=== PATIENT | female | born 1990 | race Hispanic/Latino ===

== ENCOUNTER 2022-03-31 19:36 | Emergency (ER) | payer MEDICAID, SELFPAY ==
[2022-03-31 19:42] VITALS: BP 127/67; PULSE 70; RESP 14; TEMP 36.8; O2SAT 100
--- NOTE | 2022-03-31 20:17 | ED.PREGNANCY ---
HPI - General Chief complaint: Vaginal Bleeding Stated complaint: 6 weeks , vag bleeding Time Seen by Provider: 03/31/22 19:59 History of Present Illness HPI Narrative: This is a 31-year-old female at 6wks 0d (LMP Feb 17, 2022), undergoing intrauterine insemination, who presents emergency department complaining of vaginal spotting (described as a small amount of brownish discharge) and cramps. She noted the spotting today and has had cramps beginning this morning associated with morning sickness. She denies other abdominal pain, fevers or chills. Related Data Allergies Allergy/AdvReac Type Severity Reaction Status Date / Time No Known Allergies Allergy Verified 03/31/22 22:39 Review of Systems Review of Systems: CONSTITUTIONAL: Denies fever, chills, or sweats. EYES: Denies visual changes, redness, or discharge. ENT: Denies rhinorrhea, congestion, sore throat, or otalgia. CARDIOVASCULAR: Denies chest pain, palpitations, or edema. RESPIRATORY: Denies cough or dyspnea. GASTROINTESTINAL: Denies abdominal pain, nausea, vomiting, or diarrhea. GENITOURINARY: Small mount of vaginal spotting, cramping denies dysuria or hematuria. SKIN: Denies rash or itching. MUSCULOSKELETAL: Denies back pain, joint pain, or myalgia. NEUROLOGIC: Denies headache, numbness, dizziness, or weakness. PSYCHIATRIC: Denies anxiety or depression. [facility] Social History Social History (Updated 03/31/22 @ 20:21 by Ryland Johnson MD) Smoking status: Never smoker Alcohol intake: current Substance use: never Exam Narrative: GENERAL: Well-appearing, well-nourished, and in no acute distress. HEAD: Normocephalic, atraumatic. EYES: PERRLA and EOMI. CHEST: Clear to auscultation. No respiratory distress. No wheezes rales or rhonchi HEART: Regular rate and rhythm. No murmur heard. Normal peripheral pulses. ABDOMEN: Soft, nontender, nondistended, normal active bowel sounds. No CVA tenderness to palpation (chaperoned by female RODY Perez): Normal external female genitalia, no active bleeding noted, a small amount of brown-colored substance is noted at the right vaginal wall, cervical os appears open but there is no active bleeding or other discharge EXTREMITIES: Normal range of motion. No edema. SKIN: Warm, dry, no rash. NEURO: No focal deficits. Alert and oriented x3. PSYCH: Normal mood and affect. Course Course Emergency Course: 20:24 - I performed a bedside ultrasound abdominal, I was unable to find an intrauterine . Serum beta-hCG pending. The patient states her previous beta-hCG 3 weeks ago was 154. We will follow-up lab results and dispo. 21:55 - Beta-hCG 35,551, consistent with appropriate elevation. UA is not concerning for urinary tract infection. On repeat bedside ultrasound, with the patient's bladder emptied, a single intrauterine with motion consistent with cardiac activity is noted. Unable to assess heart rate. 22:40 - The patient's blood type is A positive with a negative antibody screen. I suspect a threatened miscarriage. I advised the patient to contact and follow-up with her OB. Discussed return emergent cautions including signs/symptoms of severe bleeding, acute abdomen, and intractable vomiting. Patient voiced understanding and is comfortable with the plan. All questions answered to her satisfaction. Vital Signs Vital signs: Vital Signs Temperature 98.2 F 03/31/22 19:42 Pulse Rate 70 03/31/22 19:42 Respiratory Rate 14 03/31/22 19:42 Blood Pressure 127/67 03/31/22 19:42 Pulse Oximetry 100 03/31/22 19:42 Oxygen Delivery Room Air 03/31/22 19:42 Temperature 98.2 F 03/31/22 19:42 Pulse Rate 69 03/31/22 22:39 Respiratory Rate 16 03/31/22 22:39 Blood Pressure 110/62 03/31/22 22:39 Pulse Oximetry 99 03/31/22 22:39 Oxygen Delivery Room Air 03/31/22 19:42 MDM - OB/Uterine Contractions MDM Narrative Medical decision making narrative: Plan: Lab
[2022-03-31 21:43] LABS: Add Urine Microscopic? YES; Appearance Urine Clear (Clear); Bilirubin Urine Negative (Negative); Blood Urine Trace-Intact (Negative); Color Urine Yellow (Yellow); Glucose Urine UA Negative (Negative); Ketones Urine Negative (Negative); Leukocyte Esterase Ur Negative LEU/UL (Negative); Nitrate Urine Negative (Negative); Protein Urine Negative (Negative); Specific Grav Ur 1.015 (1.001-1.035); Urobilinogen Urine 0.2 mg/dL (<2.0)
[2022-03-31 21:53] LABS: Bacteria Urine Trace /hpf; Mucus Urine Rare /lpf; RBC Urine 0-2 /hpf (0-2); Squamous Epithelial Cell Urine Rare /hpf (Few); WBC Urine 0-3 /hpf
[2022-03-31 22:39] VITALS: BP 110/62; PULSE 69; RESP 16; O2SAT 99
[2022-03-31] MEDS: ONDANSETRON HCL ODT 4 MG TABLET PO (22:47)
== END 2022-03-31 23:01 | disposition home or self-care (01) ==
PROVIDERS: Emergency Provider Preventive Medicine Aerospace Medicine
DX: O20.0 Threatened abortion (principal); Z3A.01 Less than 8 weeks gestation of pregnancy
CPT/HCPCS: 36415; 81001; 81025; 84702; 85461; 86850; 86900; 86901; 99283; A9270